=== PATIENT | male | born 1985 | race Caucasian/White ===

== ENCOUNTER 2018-08-19 12:37 | Emergency (ER) | payer BC, SELFPAY ==
[~2018-08-19] VITALS: Ht 182.9 cm; Wt 86.2 kg
[~2018-08-19 12:37] MED LIST: ONDANSETRON ODT4 MG ORAL; PHENERGAN25 M1 ORAL
[2018-08-19] MEDS ORDERED: NKM (12:43)
[2018-08-19 12:48] VITALS: BP 145/92
[2018-08-19] MEDS ORDERED: Bacitracin Oint UD TOPIC ONE (13:15)
[2018-08-19] MEDS ORDERED: HYDROcodone/Acetamin 7.5/325 tab ORAL ONE (13:15)
[2018-08-19] MEDS ORDERED: Clindamycin 300mg/ml vial inj IM ONE (13:15)
--- NOTE | 2018-08-19 13:35 | Emergency Room Report ---
History of Present Illness General Chief Complaint: Skin Rash/Abscess Source: Patient Present Illness HPI 32 year old male presents to the emergency department with 10 out of 10 in severity progressive pain to the bottom of the left forefoot 2 days. Patient reports 2 days ago he had liquid nitrogen procedure performed on his foot and now has moderate swelling, discoloration, and tenderness. Patient states that he is up-to-date with tetanus vaccination he denies trauma or fall denies fevers , chills, progressive erythema up the leg, or paresthesias. He reports that several doctors told him he needs to go to the emergency department to make sure infection has not gone to his bone. Pain is exacerbated with weight bearing or walking. Allergies: Coded Allergies: No Known Allergies (Unverified , 12/14/13) Patient History Past Medical History: see triage record Past Surgical History: none Pertinent Family History: none Reviewed Nursing Documentation: PMH: Agreed; PSxH: Agreed Nursing Documentation-PMH Past Medical History: No Stated History Review of Systems All Other Systems: negative except mentioned in HPI Physical Exam Vital Signs Date Time Temp Pulse Resp B/P (MAP) Pulse Ox O2 Delivery O2 Flow Rate FiO2 08/19/18 12:39 98.0 74 18 145/92 98 Room Air 98.1 Sp02 EP Interpretation: reviewed, normal General Appearance: no apparent distress, alert, GCS 15, non-toxic Head: normocephalic, atraumatic ENT: hearing grossly normal, normal voice Neck: full range of motion Respiratory: lungs clear, normal breath sounds, speaking full sentences Cardiovascular #1: regular rate, rhythm, normal capillary refill Musculoskeletal: back normal, gait/station normal, normal range of motion, tender - plantar /forefoot left foot, lesion noted with fluctuance. Neurologic: alert, oriented x3, responsive, motor strength/tone normal, sensory intact, speech normal, grossly normal Psychiatric: judgement/insight normal Skin: no rash, warm/dry, well hydrated, other - discoloration, yellow-greenish to dark purple boarder of a 2cm diameter circular lesion on the foot, some callous noted , fluctuance is palpated. Lymphatic: no adenopathy Procedures Incision and Drainage Incision and Drainage : Consent: Verbal Site: Left forefoot Blade Size: 11 I & D Procedure: betadine prep Wound Location: lower extremity Wound's Depth, Shape: superficial Wound Length (cm): 1 Wound Explored: clean Anesthesia: 1% Lidocaine Volume Anesthetic (ccs): 1 Splint Applied?: No Sling Applied?: No Patient Tolerated: Well Complications: None Medical Decision Making PA Attestation Dr. Velasquez is my supervising Physician whom patient management has been discussed with. Diagnostic Impression: Primary Impression: Cellulitis and abscess of foot excluding toe ER Course 32 year old male presents to the emergency department with 10 out of 10 in severity progressive pain to the bottom of the left forefoot 2 days. Patient reports 2 days ago he had liquid nitrogen procedure performed on his foot and now has moderate swelling, discoloration, and tenderness. Patient states that he is up-to-date with tetanus vaccination he denies trauma or fall denies fevers , chills, progressive erythema up the leg, or paresthesias. He reports that several doctors told him he needs to go to the emergency department to make sure infection has not gone to his bone. Pain is exacerbated with weight bearing or walking. Ddx considered but are not limited to cellulitis, abscess, cystic acne, necrotizing fasciitis, insect bite. Vital signs: are WNL, pt. is afebrile H&PE are most consistent with ST infection s/p procedure. ORDERS: -X-ray Left Foot: NO obvious gas in the soft tissues. ED INTERVENTIONS: -I & D. - Clindamycin - for anaerobe coverage + mrsa -wound care. DISCHARGE: At this time pt. is stable for d/c to home. Will provide printed patient care instructions, and any necessary prescriptions. Care plan and follow up instructions have been discussed with the patient prior to discharge. Other X-Ray Diagnostic Results Other X-Ray Diagnostic Results : X-Ray ordered: Left foot # of Views/Limited Vs Complete: 3 View Indication: Pain EP Interpretation: Yes PA Xray: Interpretation reviewed, by supervising MD, and agrees with findings. Interpretation: no dislocation, no soft tissue swelling, other - no gas noted in the soft tissue. Impression: No acute disease Electronically Signed by: Farheen Kay PA-C Last Vital Signs Date Time Temp Pulse Resp B/P (MAP) Pulse Ox O2 Delivery O2 Flow Rate FiO2 08/19/18 12:48 74 18 145/92 98 Room Air 08/19/18 12:39 98.0 98.1 Disposition: HOME, SELF-CARE Condition: Stable Scripts Mupirocin* (MUPIROCIN*) 22 Gm Oint...g. 1 APPLIC TOPIC THREE TIMES A DAY, #22 GM Prov: Farheen Kya 08/19/18 Ibuprofen* (MOTRIN*) 600 Mg Tablet 600 MG ORAL THREE TIMES A DAY, #20 TAB 0 Refills Prov: Farheen Kay 08/19/18 Hydrocodone Bit/Acetaminophen 10-325* (NORCO 10-325*) 1 Each Tablet 1 TAB ORAL Q8HR PRN for For Pain, #9 TAB 0 Refills PRN PAIN Prov: Farheen Kay 08/19/18 Lactobac Cmb #3/Fos/Pantethine (PROBIOTIC & ACIDOPHILUS CAP) 1 Each Capsule 1 EACH PO BIDAC, #14 CAP Prov: Farheen Kay 08/19/18 Clindamycin Hcl (CLINDAMYCIN HCL) 300 Mg Capsule 300 MG ORAL FOUR TIMES A DAY for 7 Days, #28 CAP Prov: Farheen Kay 08/19/18 Referrals: NOT CHOSEN IPA/MD,REFERRING (PCP) Patient Instructions: Cellulitis, [id number], Abscess Additional Instructions: Take medications as directed. Follow up with a Primary Care Provider in 3-5 days, even if your symptoms have resolved. Return sooner to ED if new symptoms occur, or current symptoms become worse. Do not drink alcohol, drive, or operate heavy machinery while taking [place] as this may cause drowsiness. - Please note that this Emergency Department Report was dictated using [employer] technology software, occasionally this can lead to erroneous entry secondary to interpretation by the dictation equipment. Farheen Kay Aug 19, 2018 13:34
[2018-08-19 14:20] VITALS: BP 136/81
[2018-08-19] MEDS ORDERED: CLINDAMYCIN HC300 MG ORAL (14:20)
[2018-08-19] MEDS ORDERED: MUPIROCIN22 GM TOPIC (14:20)
[2018-08-19] MEDS ORDERED: IBUPROFEN600 MG ORAL (14:20)
[2018-08-19] MEDS ORDERED: NORCO 10-325 T1 EACH ORAL (14:20)
[2018-08-19] MEDS ORDERED: PROBIOTIC & AC1 EAC1 PO (14:20)
--- NOTE | 2018-08-19 16:11 | Diagnostic Imaging Report ---
Indication: Foot pain Comparison: None Findings: 3 views of the left foot were obtained. No acute fractures, malalignment, erosions or periostitis are identified. Soft tissues are unremarkable. Impression: No acute findings
== END 2018-08-19 14:30 | disposition home or self-care (01) ==
LOC: EMR 13:27
DX: L03.116 Cellulitis of left lower limb (principal)
CPT/HCPCS: 10060; 73630; 96372; 99283; S0077